=== PATIENT | male | born 1930 | race Caucasian/White ===

== ENCOUNTER 2017-09-03 09:00 | Inpatient (IN) | payer MEDICARE, OTHER ==
[2017-09-13] MEDS ORDERED: FAMOTIDINE 20MG TABLET PO ONE (06:00)
[2017-09-13] MEDS ORDERED: MECLIZINE 25 MG TABLET PO ONE (06:00)
[2017-09-13] MEDS ORDERED: METOCLOPRAMIDE 10 MG TABLET PO ONE (06:00)
[2017-09-13] MEDS ORDERED: CELECOXIB 100 MG CAPSULE PO ONE (06:00)
[2017-09-13] MEDS ORDERED: ACETAMINOPHEN 1,000 MG/100 ML BTL IV ONE (06:00)
[2017-09-13] MEDS ORDERED: VANCOMYCIN HCL 1,000 MG in DEXTROSE 5 % IN WATER 250 ML IVPB ONE ×2 (06:00)
[2017-09-13 12:49] LABS: ABO GROUP A; ANTIBODY SCREEN NEGATIVE (NEGATIVE); RH TYPE POSITIVE
[2017-09-13] MEDS ORDERED: TRANEXAMIC ACID 1,000 MG/10 ML ML IV ONE (14:00)
[2017-09-13] MEDS ORDERED: VANCOMYCIN HCL 1 GM VIAL IVPB ONE (14:00)
[2017-09-13] MEDS ORDERED: BUPIVACAINE 0.5% W/EPI MPF 30 ML VIAL IVP ONE (14:00)
[2017-09-13] MEDS ORDERED: METOCLOPRAMIDE HCL 10 MG/2 ML VIAL IVP PRN (15:09)
[2017-09-13] MEDS ORDERED: ACETAMINOPHEN 325 MG TAB PO PRN (15:09)
[2017-09-13] MEDS ORDERED: TRAMADOL HCL 50 MG TABLET PO PRN ×2 (15:09)
[2017-09-13] MEDS ORDERED: ONDANSETRON HCL IV 4 MG/2 ML VIAL IVP PRN (15:09)
[2017-09-13] MEDS ORDERED: HYDROCODONE/APAP 5/325MG TABLET PO PRN ×2 (15:09)
[2017-09-13] MEDS ORDERED: PROMETHAZINE HCL 12.5 MG in 0.9 % SODIUM CHLORIDE 100ML 50 ML IVPB PRN (15:09)
[2017-09-13] MEDS ORDERED: BISACODYL 10 MG SUPP RC PRN (15:09)
[2017-09-13] MEDS ORDERED: DIPHENHYDRAMINE HCL 25 MG CAPSULE PO PRN (15:09)
[2017-09-13] MEDS ORDERED: KETOROLAC 30 MG/ML VIAL IVP PRN ×2 (15:09)
[2017-09-13] MEDS ORDERED: HYDROMORPHONE HCL 2 MG/ML VIAL IM PRN ×2 (15:09)
[2017-09-13] MEDS ORDERED: HYDROCODONE/APAP 7.5/325MG TABLET PO PRN (15:09)
[2017-09-13] MEDS ORDERED: ZOLPIDEM TARTRATE 5 MG TABLET PO PRN (15:09)
[2017-09-13] MEDS ORDERED: MAGNESIUM HYDROXIDE 30 ML UDC PO PRN (15:09)
[2017-09-13] MEDS ORDERED: ACETAMINOPHEN W/ CODEINE 300MG/30MG TABLET PO PRN ×2 (15:09)
[2017-09-13] MEDS ORDERED: AL HYDROX/MAG HYDROX 30ML UD PO PRN (15:09)
[2017-09-13] MEDS ORDERED: ACETAMINOPHEN W/ CODEINE 300MG/60MG TABLET PO PRN ×2 (15:09)
[2017-09-13] MEDS ORDERED: NALOXONE 0.4 MG/1 ML VIAL IVP PRN (15:09)
[2017-09-13] MEDS ORDERED: MECLIZINE 25 MG TABLET PO PRN (15:10)
[2017-09-13] MEDS ORDERED: DEXTROSE 5 % AND 0.9 % NACL 1,000 ML IV PRN (18:00)
[2017-09-13] MEDS: DOCUSATE SODIUM 100 MG CAPSULE PO SCH (21:30)
[2017-09-13] MEDS: FERROUS SULFATE 325 MG TAB PO SCH (21:30)
[2017-09-13] MEDS: METOPROLOL SUCC 50 MG TABLET PO SCH (21:32)
[2017-09-13] MEDS: HYDRALAZINE HCL 25 MG TABLET PO SCH (21:36)
[2017-09-13] MEDS ORDERED: SIMVASTATIN 20 MG TABLET PO SCH (22:00)
[2017-09-13] MEDS ORDERED: PATIENT OWN MED: ALFUZOSIN 10 MG PO SCH (22:00)
[2017-09-13] MEDS ORDERED: CLONAZEPAM 1MG TABLET PO SCH (22:00)
[2017-09-14] MEDS: VANCOMYCIN HCL 1,000 MG in 0.9 % SODIUM CHLORIDE 250ML 250 ML IVPB SCH ×2 (00:52→12:17)
[2017-09-14] MEDS: HYDROCODONE/APAP 7.5/325MG TABLET PO PRN ×2 (04:02→08:03)
[2017-09-14 06:58] LABS: HEMATOCRIT 36.8 % (42.0-52.0); HEMOGLOBIN 12.4 gm/dl (14.0-18.0)
[2017-09-14] MEDS ORDERED: LEVOTHYROXINE SODIUM 75 MCG TABLET PO SCH (07:00)
[2017-09-14] MEDS ORDERED: FAMOTIDINE 20MG TABLET PO SCH (07:00)
--- NOTE | 2017-09-14 07:11 | RADIOLOGY REPORT ---
EXAM: PORTABLE LEFT HIP HISTORY: POSTOP. TECHNIQUE: A single AP view of the left hip was performed. FINDINGS: The patient is status post left hip arthroplasty. No complicating process. IMPRESSION: STATUS POST LEFT HIP ARTHROPLASTY. NO COMPLICATING PROCESS. JOB NUMBER: [id number] MTDD
[2017-09-14] MEDS: HYDRALAZINE HCL 25 MG TABLET PO SCH (09:04)
[2017-09-14] MEDS: METOPROLOL SUCC 50 MG TABLET PO SCH (09:05)
[2017-09-14] MEDS: FERROUS SULFATE 325 MG TAB PO SCH (09:05)
[2017-09-14] MEDS: DOCUSATE SODIUM 100 MG CAPSULE PO SCH (09:05)
[2017-09-14] MEDS ORDERED: RIVAROXABAN 10 MG TABLET PO SCH (10:00)
[2017-09-14] MEDS ORDERED: HYDROCHLOROTHIAZIDE 25 MG TABLET PO SCH (10:00)
[2017-09-14] MEDS ORDERED: PATIENT OWN MED: FINASTERIDE 5 MG PO SCH (10:00)
[2017-09-14] MEDS ORDERED: CELECOXIB 100 MG CAPSULE PO SCH (10:00)
--- NOTE | 2017-09-14 10:59 | Rehab Evaluation ---
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) Hx of Migraines Yes: yrs ago Comment: high cholesterol, severe aortic regurg asymptomatic PMH - Neuro Hx Neurological Disorders Yes Hx Dizziness Yes: vertigo positional 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) Hx Weakness Yes: left arm and left knee/hip PMH - GI Hx Gastrointestinal Disorders Yes Hx Gastroesophageal Reflux Yes PMH - Hx Genitourinary Disorders Yes Hx Prostate Problems Yes: BPH Hx Renal Disease Yes: stage 3 Comment: pt alway needs to have catheter after ansesthesia PMH - Endocrine Hx Endocrine Disorders Yes Hx Thyroid Disease Yes PMH - Musculoskeletal Hx Musculoskeletal Disorders Yes Hx Arthritis Yes PMH - Psych Hx Psychiatric Problems Yes Hx Anxiety Yes Hx Depression Yes PMH - Hematology/Oncology Hx Hematology/Oncology No Disorders Premorbid Status: Detail (Prior to surgery the patient was independent with all mobility.) Social History: Detail (The patient lives with spouse in a one story house with one step at the enterance with one handrailing. The patient's bathroom is equipped with with tub/shower combination,grab bars , hand held shower, tub bench with transfer seat and an elevated toilet seat. The patient has standard walker and " several canes" at home.) Precautions: [place], Fall, Other (THR precautions.) - Time With Patient Total Time Spent With Patient (Min): 20 Treatment Procedures: Detail (Initial Evaluation, gait training) Subjective Information - Subjective Information Per Patient (The patient had complaints of L hip pain but did not rate his pain using the 0-10 pain scale.) Objective Data - Mental Status Patient Orientation: Oriented x3 - Visual Perception Appears within normal limits for therapeutic activities - ROM Not within normal limits (The patient's L hip is within THR precautions. All other LE AROM is WNL.) - Strength/Tone Not within normal limits (The patient's L LE strength was not tested due to s/p surgery however the patient presents with hip flexor and abductor weakness ie: difficulty with heel slides and supine hip abduction. The patient's weakness is influenced by L hip pain. The patient's R LE strength was 4+ to 5/5.) - Bed Mobility Independent (The patient was independent with sit to supine and scooting up in bed with verbal cues and use of handrails. PT did not assess supine to sit secondary to patient was fatigued and painful. Refer to OT not for supine to sit transfer.) - Transfers Independent (The patient was independent with sit to and from stand transfer.) - Balance Balance Sitting: Good Balance Standing: Good - Sensation Intact - Gait Detail (The patient ambulated with standard walker, WBAT on the L LE independently a distance of 120 feet x 1. The patient ambulated on 3 steps using proper technique, one railing and folded walker with supervision for safety only.) Therapy Assessment - Therapy Assessment Detail (The patient was independent with supine to sit , scooting up in bed, transfers and ambulation on levels and stairs. The patient correctly followed THR precautions throughout mobility. The patient has met all inpatient PT goals. ) Patient Education - Patient Education Teaching Topic: Exercise/Activity (The patient was independent with THR HEP including: heel slides, hip abduction, gluteal sets, quad sets, hamstring sets, ankle pumps.), Precautions (The patient recalled all THR precautions without verbal cues and safely followed them.) Response: Return Demonstration Teaching Method: Demonstration, Handout Teaching Recipient: Patient Barriers To Learning: Age Related Problem List - Problem List Physical Therapy Problem List: Detail (The patient has decreased L LE strength and hip pain as to be expected following surgery.) Goals - Goals Physical Therapy Goals: All inpatient Pt goals have been met. Prognosis - Prognosis Good Plan - Plan Physical Therapy Plan: The patient is discharged from inpatient PT and is to continue with Home PT.
--- NOTE | 2017-09-14 11:14 | Rehab Evaluation ---
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) Hx of Migraines Yes: yrs ago Comment: high cholesterol, severe aortic regurg asymptomatic PMH - Neuro Hx Neurological Disorders Yes Hx Dizziness Yes: vertigo positional 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) Hx Weakness Yes: left arm and left knee/hip PMH - GI Hx Gastrointestinal Disorders Yes Hx Gastroesophageal Reflux Yes PMH - Hx Genitourinary Disorders Yes Hx Prostate Problems Yes: BPH Hx Renal Disease Yes: stage 3 Comment: pt alway needs to have catheter after ansesthesia PMH - Endocrine Hx Endocrine Disorders Yes Hx Thyroid Disease Yes PMH - Musculoskeletal Hx Musculoskeletal Disorders Yes Hx Arthritis Yes PMH - Psych Hx Psychiatric Problems Yes Hx Anxiety Yes Hx Depression Yes PMH - Hematology/Oncology Hx Hematology/Oncology No Disorders Premorbid Status: Detail (Prior to surgery the patient was independent with all mobility.) Social History: Detail (The patient lives with spouse in a one story house with one step at the entrance with one handrailing. The patient's bathroom is equipped with with tub/shower combination, grab bars, hand held shower, tub bench with transfer seat and an elevated toilet seat. The patient has standard walker and " several canes" at home. He will be borrowing a hat band attacher from his sister. His is responsible for all home mgmt, meal prep and laundry. He is responsible for yard work.) Precautions: [place], Fall, Other (THR precautions.) - Time With Patient Total Time Spent With Patient (Min): 30 Treatment Procedures: Detail (OT eval low complexity) Subjective Information - Subjective Information Per Patient Objective Data - Pain Pain Present: No (0/10 at rest) - Mental Status Patient Orientation: Oriented x3 - Visual Perception Appears within normal limits for therapeutic activities - ROM Within normal limits (Suresh UE AROM WNL) - Strength/Tone Within normal limits (Suresh UE strength WNL) - Coordination Appears within normal limits for therapeutic activities - Bed Mobility Needs Assist (Pt required min assist x 1 for supine to sit due to hip pain. Reviewed transfer technique and pt reports he is planning to sleep in recliner for a few days as his is unable to help him out of bed. Encouraged pt to review bed mobility with home PT after discharge.) - Transfers Independent (Ind with sit to stand from EOB.) - Balance Balance Sitting: Good Balance Standing: Good - Sensation Intact - Gait Detail (Pt ambulating in room with standard walker Indly.) - ADL's/IADL's Detail (Pt educated and demonstrated learning of LE dressing techniques using hat band attacher and sock aid. Pt able to don tennis shoes with modification to laces. Pt reports he is borrowing a hat band attacher and his will assist with socks. Reviewed shower safety, pt verbalizes learning.) Therapy Assessment - Therapy Assessment Detail (Ind with LE dressing while maintaining hip precautions.) Problem List - Problem List Occupational Therapy Problem List: Detail (No current OT problems identified.) Goals - Goals Occupational Therapy Goals: No current OT goals identified. Prognosis - Prognosis Good Plan - Plan Occupational Therapy Plan: No further IP OT recommended. Thank you for this referral.
[2017-09-14] MEDS ORDERED: PROPOFOL 10 MG/ML VIAL IV ONE (13:49)
[2017-09-14] MEDS ORDERED: EPHEDRINE SULFATE 50 MG/ML ML IV ONE (13:49)
[2017-09-14] MEDS ORDERED: ONDANSETRON HCL IV 4 MG/2 ML VIAL IVP ONE (13:49)
[2017-09-14] MEDS ORDERED: MIDAZOLAM HCL 2MG/2ML VIAL IV ONE (13:49)
[2017-09-14] MEDS ORDERED: LIDOCAINE 1% MDV (10MG/ML) 20ML VIAL SQ ONE (13:49)
[2017-09-15] MEDS ORDERED: NEXIUM 40 MG PO SCH (07:00)
--- NOTE | 2017-09-15 22:04 | Operative Note ---
DATE OF SURGERY: 09/13/2017 PREOPERATIVE DIAGNOSIS: End-stage left hip arthrosis. POSTOPERATIVE DIAGNOSIS: End-stage left hip arthrosis. OPERATION: Left total hip arthroplasty. SURGEON: Davi Montez M.D. ANESTHESIA: Spinal. Eula Key CRNA and Kevyn Corea CRNA. COMPLICATIONS: None. BLOOD LOSS: 200 mL. OPERATIVE FINDINGS: [id number] hip arthrosis. COMPONENTS PLACED: 2 grams Vancomycin, [employer] cemented Synergy stem, size 14, high-offset with a 54 mm three-hole reflection acetabular shell with one acetabular screw, two screw caps, a centrally threaded screw cap, a 35 degree high-crosslinked polyethylene liner, and a distal cement restrictor, 12 mm cement centralizer, and a 32 +0 mm Corn Chrome femoral head component. INDICATIONS FOR OPERATION: This is an 87-year-old male, who is active/healthy, who has had left hip arthrosis and progressively worse symptoms for several years. He failed nonoperative treatment and is scheduled for a hip replacement. I explained the risks and benefits to him in detail for his diagnosis and procedures including but not limited to; infection, nerve injury, vessel injury , persistent pain, persistent numbness and tingling in his hip, periprosthetic fracture, need for resection arthroplasty should the components become infected or loosened, nerve injury, vessel injury, blood clot, need for further procedures, need for anticoagulation to prevent blood clots and risks associated with these medications and all of his questions were answered. Rehab and course were outlined and he agreed to proceed. PROCEDURE: The patient was brought to the O.R. and placed in the right lateral decubitus position and his left hip and lower extremity were prepped and draped in the usual sterile fashion, The left hip was prepped again with ChloraPrep after it was draped. Intraoperative time-out was performed. Next, a standard posterior approach was performed over the hip and infiltrated with 0.5% Marcaine with Epinephrine, 2 grams of Tranexamic Acid and Exparel mixture. The skin and subcutaneous tissues were dissected down to the gluteal fascia. The gluteal fascia was split longitudinally and the subgluteal plane was bluntly dissected. I identified the sciatic nerve and carefully protected it at all times. I took off the short external rotators. Next, I incised the capsule proximally and distally and released the capsule around the femoral head and neck and resected the femoral head about 1.5 cm above the lesser trochanter. Next, I removed the short external rotator tendon stumps. I inserted the boxed osteotome and then inserted the reamer and reamed by hand working in 1 mm increments to a size 14. We stopped there. We broached a 12 and calcar planed, then a 13 and calcar planed, and then a 4 and calcar planed and had good fit and stopped there. The 14 fit nicely. Next, attention was turned to the acetabulum. We placed an inferior acetabular retractor and released the capsule anteriorly. We placed a retractor there to retract the proximal femur anteriorly. We resected the labrum and some capsule around the periphery and had good exposure of the acetabulum. Next, we started reaming in 1 mm increments in 45 degrees of inclination and 20 degrees of anteversion until we reamed up to a size 53. We trialed a 54 shell and it fit nicely and that is the size we plan on using. Next, we impacted down the real 54 shell component, again using the helicopter guide in 45 degrees of inclination and 20 degrees of anteversion and tapped it down until it was flush to the medial wall. We drilled the posterior central and superior quadrant screw hole and inserted that screw and had a good purchase. Next, we placed the trial liner and did a trial reduction. The best combination for range of motion, stability, and leg lengths was with a high-offset 32 +0 mm head. This allowed for a good abductor tensioning, stability with flexion in internal rotation and extension in external rotation, and symmetric leg lengths and this was the size we used. We removed all trial components now. Copiously irrigated the acetabulum and inserted the threaded screw cap and the two screw caps and impacted down the real acetabular liner with the phelan in the posterior superior quadrant and verified this was interlocking around the periphery. Next, we irrigated the femoral canal copiously. We placed the cement restrictor distally and inserted the suction catheter. We injected cement in a 3rd generation cement technique. We removed the suction catheter and then impacted and cemented manually by hand and then inserted the real femoral stem, again in 15 degrees of anteversion until the collar was flush with the medial calcar and held it there until the cement hardened and removed excess cement. We cleaned and dried the trunnion. We impacted down the real femoral head. We re -reduced the hip. Final range of motion revealed the same. We irrigated the hip copiously, injected the remainder of our mixture in the deep capsule protecting the sciatic nerve, the deep capsule, short external rotators, abductors, and periosteum working deep to superficial. We closed the gluteal fascia with running #2 Quill suture. Irrigated and closed the skin with 2-0 Vicryl superiorly and placed a provisional dressing with the Acticoat on and this will be changed to a ANGELA dressing tomorrow. Abduction pillow. Postoperative x-ray showed good fit and orientation of the components. The patient tolerated the procedure well. No intraoperative complications. All sponge, needle, and blade counts were correct. Recovery stable, neurovascularly intact. He will be discharged to the Floor. He will be discharged home tomorrow with Home Therapy Nurse. He will follow-up in two weeks. cc: Dr. Kaplan JOB NUMBER: [id number] MTDD
== END 2017-09-14 13:50 | disposition home health service (06) | DRG 470 ==
LOC: MEDSURG 09-13 11:43 → UNDOADMIN 09-13 11:43
PROVIDERS: ADMIT Orthopaedic Surgery; ATTEND Orthopaedic Surgery
PROC: 0SRB069 Replacement of Left Hip Joint with Oxidized Zirconium on Polyethylene Synthetic Substitute, Cemented, Open Approach (ICD-10-PCS; principal; 2017-09-13 14:00)
DX: M16.12 Unilateral primary osteoarthritis, left hip (principal); I10 Essential (primary) hypertension; E78.00 Pure hypercholesterolemia, unspecified; N40.0 Benign prostatic hyperplasia without lower urinary tract symptoms; K21.9 Gastro-esophageal reflux disease without esophagitis
CPT/HCPCS: 85014; 85018; 86850; 86900; 86901; C1776; J2405; J7050; J7060

== ENCOUNTER 2018-09-26 07:58 | Day surgery (SDC) | payer MEDICARE, OTHER ==
[~2018-09-26 07:58] MED LIST: ACETAMINOPHEN 500 MG TABLET PO ONE; CEFAZOLIN 2 Gram 2 GM/50 ML BAG IVPB ONE; CELECOXIB 100 MG CAPSULE PO ONE; FAMOTIDINE 20MG TABLET PO ONE; METOCLOPRAMIDE 10 MG TABLET PO ONE; SCOPOLAMINE 1 PATCH TDSY TD ONE; VANCOMYCIN 1GM/200ML PREMIX 1 GM/200 ML PIGGYBACK IVPB ONE
[2018-09-26] MEDS ORDERED: ROPIVACAINE HCL (NAROPIN) /PF 5MG/ML 20ML VIAL IV ONE (07:59)
[2018-09-26] MEDS ORDERED: LIDOCAINE 2% MDV (20MG/ML) 20ML VIAL IV ONE (07:59)
[2018-09-26] MEDS ORDERED: TRANEXAMIC ACID 1,000 MG/10 ML ML IV ONE (07:59)
[2018-09-26] MEDS ORDERED: VANCOMYCIN HCL 1 GM VIAL IVPB ONE (07:59)
[2018-09-26] MEDS ORDERED: PROPOFOL 10 MG/ML VIAL IV ONE (07:59)
[2018-09-26] MEDS ORDERED: DEXAMETHASONE 4 MG/ML 1ML VIAL IVP ONE (07:59)
[2018-09-26] MEDS ORDERED: MIDAZOLAM HCL 2MG/2ML VIAL IV ONE (07:59)
[2018-09-26] MEDS ORDERED: ZOLPIDEM TARTRATE 5 MG TABLET PO PRN (08:23)
[2018-09-26] MEDS ORDERED: PROMETHAZINE HCL 12.5 MG in 0.9 % SODIUM CHLORIDE 100ML 50 ML IVPB PRN (08:23)
[2018-09-26] MEDS ORDERED: METOCLOPRAMIDE HCL 10 MG/2 ML VIAL IVP PRN (08:23)
[2018-09-26] MEDS ORDERED: KETOROLAC 30 MG/ML VIAL IVP PRN ×2 (08:23)
[2018-09-26] MEDS ORDERED: NALOXONE 0.4 MG/1 ML VIAL IVP PRN (08:23)
[2018-09-26] MEDS ORDERED: TRAMADOL HCL 50 MG TABLET PO PRN ×2 (08:23)
[2018-09-26] MEDS ORDERED: AL HYDROX/MAG HYDROX 30ML UD PO PRN (08:23)
[2018-09-26] MEDS ORDERED: HYDROCODONE/APAP 7.5/325MG TABLET PO PRN (08:23)
[2018-09-26] MEDS ORDERED: MAGNESIUM HYDROXIDE 30 ML UDC PO PRN (08:23)
[2018-09-26] MEDS ORDERED: ACETAMINOPHEN W/ CODEINE 300MG/60MG TABLET PO PRN ×2 (08:23)
[2018-09-26] MEDS ORDERED: HYDROCODONE/APAP 5/325MG TABLET PO PRN ×2 (08:23)
[2018-09-26] MEDS ORDERED: BISACODYL 10 MG SUPP RC PRN (08:23)
[2018-09-26] MEDS ORDERED: HYDROMORPHONE HCL 2 MG/ML VIAL IM PRN ×2 (08:23)
[2018-09-26] MEDS ORDERED: ACETAMINOPHEN W/ CODEINE 300MG/30MG TABLET PO PRN ×2 (08:23)
[2018-09-26] MEDS ORDERED: DIPHENHYDRAMINE HCL 25 MG CAPSULE PO PRN (08:23)
[2018-09-26] MEDS ORDERED: ACETAMINOPHEN 325 MG TAB PO PRN (08:23)
[2018-09-26 08:53] LABS: ABO GROUP A; ANTIBODY SCREEN NEGATIVE (NEGATIVE); RH TYPE POSITIVE
[2018-09-26] MEDS ORDERED: DOCUSATE SODIUM 100 MG CAPSULE PO SCH (10:00)
[2018-09-26] MEDS ORDERED: FERROUS SULFATE 325 MG TAB PO SCH (10:00)
[2018-09-26] MEDS ORDERED: 0.9 % SODIUM CHLORIDE 1000ML 1,000 ML IV ONE ×2 (10:23→10:56)
[2018-09-26] MEDS ORDERED: BUPIVACAINE 0.5% W/EPI MPF 30 ML VIAL SQ ONE (10:51)
[2018-09-26] MEDS ORDERED: BUPIVACAINE LIPOSOME 266MG/20ML VIAL SQ ONE ×2 (10:51)
[2018-09-26] MEDS: ONDANSETRON HCL IV 4 MG/2 ML VIAL IVP PRN (14:22)
[2018-09-26] MEDS ORDERED: PATIENT OWN MED: CLONAZEPAM 0.5 MG PO SCH (16:00)
[2018-09-26] MEDS ORDERED: HYDRALAZINE HCL 10 MG TABLET PO SCH (16:00)
--- NOTE | 2018-09-26 16:10 | Rehab Evaluation ---
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) Hx of Migraines Yes: yrs ago Comment: POSSIBLE AORTIC VALVE REPLACEMENT IN HIS FUTURE PMH - Neuro Hx Neurological Disorders Yes Hx Dizziness Yes: vertigo positional 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) Hx Weakness Yes: left arm and left knee/hip PMH - GI Hx Gastrointestinal Disorders Yes Hx Gastroesophageal Reflux Yes PMH - Hx Genitourinary Disorders Yes Hx Prostate Problems Yes: BPH Hx Renal Disease Yes: stage 3 Comment: pt alway needs to have catheter after ansesthesia PMH - Endocrine Hx Endocrine Disorders Yes Hx Thyroid Disease Yes PMH - Musculoskeletal Hx Musculoskeletal Disorders Yes Hx Arthritis Yes PMH - Psych Hx Psychiatric Problems Yes Hx Anxiety Yes Hx Depression Yes PMH - Hematology/Oncology Hx Hematology/Oncology No Disorders Premorbid Status: Detail (The patient was independent with all mobility prior to surgery.) Social History: Detail (The patient lives with spouse in a one story house with one step at the enterance and one handrail. The bathroom is equipped with: a tub/shower combination, hand held shower, elevated toilet. The bathroom has grab bars by the shower but not the toilet. The patient has a standard walker. The patient has a motor lodge clerk.) Precautions: [place], Fall, Other (WBAT on the L LE) - Time With Patient Total Time Spent With Patient (Min): 30 Treatment Procedures: Detail (Initial Evaluation Low Complexity, gait training) Subjective Information - Subjective Information Per Patient (The patient has no complaints of pain.) Objective Data - Mental Status Patient Orientation: Oriented x3 - Visual Perception Appears within normal limits for therapeutic activities - ROM Not within normal limits (The patient's L knee AROM is limited as to be expected following surgery. All other AROM is WNL.) - Strength/Tone Not within normal limits (The patient's L LE strength was not tested s/p surgery however is functional ie: patient is able to lift L LE out of bed. R LE strength is functional.) - Bed Mobility Independent (The patient is independent with supine to sit transfer.) - Transfers Independent (The patient was independent with sit to and from stand transfer and toilet transfer.) - Balance Balance Sitting: Good Balance Standing: Good - Sensation Intact - Gait Detail (The patient ambulated with standard walker a distance of 74 feet x 1 WBAT on the L LE with assist of 1 to handle the IV .) Therapy Assessment - Therapy Assessment Detail (The patient was independent with bed mobility, transfers and ambulation on level surfaces. After ambulating, the patient was left in chair at bedside with call light within reach. Nursing staff was notified. Feel the patient will progress well with mobility.) Problem List - Problem List Physical Therapy Problem List: Detail ( Decreased L knee AROM and LE strength.) Goals - Goals Physical Therapy Goals: 1) The patient will be independent with TKA HEP. 2) The patient will ambulate on stairs using proper technique with supervision for safety only. Prognosis - Prognosis Good Plan - Plan Physical Therapy Plan: PT 1-2 sessions for gait training and instruction in TKA HEP.
[2018-09-26] MEDS: DEXTROSE 5 % AND 0.9 % NACL 1,000 ML IV PRN (16:25)
[2018-09-26] MEDS: METOPROLOL TARTRATE 50 MG PO SCH (21:16)
[2018-09-26] MEDS: DOCUSATE SODIUM 100 MG CAPSULE PO SCH (21:16)
[2018-09-26] MEDS: FERROUS SULFATE 325 MG TAB PO SCH (21:16)
[2018-09-26] MEDS: HYDRALAZINE 10 MG PO SCH (21:16)
[2018-09-26] MEDS: VANCOMYCIN 1GM/200ML PREMIX 1 GM/200 ML PIGGYBACK IVPB SCH (21:17)
[2018-09-26] MEDS ORDERED: PATIENT OWN MED: AMLODIPINE 5 MG PO SCH (22:00)
[2018-09-26] MEDS ORDERED: PATIENT OWN MED: SIMVASTATIN 20 MG PO SCH (22:00)
[2018-09-27] MEDS: DEXTROSE 5 % AND 0.9 % NACL 1,000 ML IV PRN (01:30)
[2018-09-27] MEDS: HYDROCODONE/APAP 7.5/325MG TABLET PO PRN ×3 (05:13→15:53)
[2018-09-27 06:28] LABS: HEMATOCRIT 36.7 % (42.0-52.0); HEMOGLOBIN 12.2 gm/dl (14.0-18.0)
[2018-09-27] MEDS ORDERED: LEVOTHYROXINE SODIUM 100 MCG TABLET PO SCH (07:00)
[2018-09-27] MEDS: VANCOMYCIN 1GM/200ML PREMIX 1 GM/200 ML PIGGYBACK IVPB SCH (08:51)
[2018-09-27] MEDS: FERROUS SULFATE 325 MG TAB PO SCH (09:07)
[2018-09-27] MEDS: DOCUSATE SODIUM 100 MG CAPSULE PO SCH (09:07)
[2018-09-27] MEDS ORDERED: PATIENT OWN MED: FAMOTIDINE 20 MG PO SCH (10:00)
[2018-09-27] MEDS ORDERED: PATIENT OWN MED: FINASTERIDE 5 MG PO SCH (10:00)
[2018-09-27] MEDS ORDERED: RIVAROXABAN 10 MG TABLET PO SCH (10:00)
[2018-09-27] MEDS ORDERED: CELECOXIB 100 MG CAPSULE PO SCH (10:00)
[2018-09-27] MEDS ORDERED: PATIENT OWN MED: ALFUZOSIN 10 MG PO SCH (10:00)
--- NOTE | 2018-09-27 10:38 | Physical Therapy Tx Note ---
Physical Therapy Tx Note - Treatment Note Tolerated: Good Total Time Spent With Patient: 20 Physical Therapy Tx Note: Detail (The patient was up in chair when PT arrived and feeling better. Patient denied pain. The patient ambulated with front wheeled walker WBAT on the L LE a distance of 100 feet x 1 independently. The patient ambulated on stairs using one railing and folded walker with supervision for safety using proper technique. The patient completed the following TKA exercises including: seated and supine heel slides, ankle pumps, quad sets, gluteal sets, hamstring sets and SLR. The patient has met all inpatient goals and is discharged from inpatient PT.) Physical Therapy Problem List: Detail ( Decreased L knee AROM and LE strength.) Physical Therapy Goals: 1) The patient will be independent with TKA HEP.(Goal Met). 2) The patient will ambulate on stairs using proper technique with supervision for safety only.(Goal Met) Physical Therapy Plan: The patient has met all inpatient PT goals and is discharged from inpatient PT. The patient is to receive Home PT.
--- NOTE | 2018-09-27 11:12 | Rehab Evaluation ---
Patient Information - Patient Information Diagnosis: L knee OA Ordered Treatment: OT Evaluate and Treat Status: Initial Evaluation Surgery: Yes (L knee TKA) Date of Surgery: 09/26/18 Past Medical/Surgical Hx: PAST MEDICAL/SURGICAL HISTORY Past Surgical History [facility] 09-13-17 billie c scope right RTC inguinal hernia left knee scope lami prostate bx PMH - Respiratory Hx Respiratory Disorders Yes Hx Sleep Apnea Yes Hx of CPAP Yes PMH - Cardiovascular Hx Cardiovascular Disorders Yes Hx Abnormal EKG Yes Hx Hypertension Yes Hx Heart Murmur Yes Exercise Tolerance Good 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) Hx of Migraines Yes: yrs ago Comment: POSSIBLE AORTIC VALVE REPLACEMENT IN HIS FUTURE PMH - Neuro Hx Neurological Disorders Yes Hx Dizziness Yes: vertigo positional 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) Hx Weakness Yes: left arm and left knee/hip PMH - GI Hx Gastrointestinal Disorders Yes Hx Gastroesophageal Reflux Yes PMH - Hx Genitourinary Disorders Yes Hx Prostate Problems Yes: BPH Hx Renal Disease Yes: stage 3 Comment: pt alautumn needs to have catheter after ansesthesia PMH - Endocrine Hx Endocrine Disorders Yes Hx Thyroid Disease Yes PMH - Musculoskeletal Hx Musculoskeletal Disorders Yes Hx Arthritis Yes PMH - Psych Hx Psychiatric Problems Yes Hx Anxiety Yes Hx Depression Yes PMH - Hematology/Oncology Hx Hematology/Oncology No Disorders Premorbid Status: Detail (The patient was independent with all ADLs and mobility and driving prior to surgery.) Social History: Detail (The patient lives with spouse in a one story house with one step at the enterance and a right-sided handrail. The bathroom is equipped with: a tub/shower combination, grab bars in the shower, hand held shower, and elevated toilet. The patient has a standard walker and a powerhouse attendant.) Precautions: [place], Fall, Other (WBAT on the L LE) - Time With Patient Total Time Spent With Patient (Min): 20 (1 eval) Treatment Procedures: Detail (OT eval: low complexity) Subjective Information - Subjective Information Per Patient (Ok to see per ESAU Lowery. Pt ageeable to OT eval.) Objective Data - Pain Pain Present: No Pain Scale Used: Numeric (1 - 10) (0/10) - Mental Status Patient Orientation: Oriented x3 - Visual Perception Appears within normal limits for therapeutic activities - ROM Within normal limits - Strength/Tone Within normal limits - Coordination Appears within normal limits for therapeutic activities - Transfers Independent (Sit to/from stand to FWW from chair and raised toilet seat independently.) - Balance Balance Sitting: Good Balance Standing: Good - Sensation Intact - Gait Detail (Functional mobility with FWW within Pt's bedroom with supervision - verbal instruction for smaller steps especially during turns, progressing to MOD I with walker) - ADL's/IADL's Detail (OT educated Pt on adaptive technique for LB dressing, Pt demos MOD I with modified techniques to don underwear, pants, socks, and shoes. OT educated Pt on modified techniques for kitchen and bathroom safety at home, Pt verbalizes understanding and demos ability to complete tub TF.) Therapy Assessment - Therapy Assessment Detail (Pt demos safety and MOD I with LB dressing and verbalizes safe technique for home tasks with good safety awareness. No safety concerns re: home DC.) Patient Education - Patient Education Response: Return Demonstration, Verbalize Understanding Teaching Method: Discussion, Demonstration Teaching Recipient: Patient Barriers To Learning: None Problem List - Problem List Physical Therapy Problem List: Detail ( Decreased L knee AROM and LE strength.) Occupational Therapy Problem List: Detail (No futher IP OT needs identified.) Goals - Goals Physical Therapy Goals: 1) The patient will be independent with TKA HEP.(Goal Met). 2) The patient will ambulate on stairs using proper technique with supervision for safety only.(Goal Met) Occupational Therapy Goals: No futher IP OT needs/goals identified. Prognosis - Prognosis Good Plan - Plan Physical Therapy Plan: The patient has met all inpatient PT goals and is discharged from inpatient PT. The patient is to receive Home PT. Occupational Therapy Plan: No further IP OT needs identified. DC skilled OT services. Thank you for this referral.
[2018-09-27] MEDS: ONDANSETRON HCL IV 4 MG/2 ML VIAL IVP PRN (11:38)
[2018-09-27] MEDS: METOPROLOL TARTRATE 50 MG PO SCH (13:13)
[2018-09-27] MEDS: HYDRALAZINE 10 MG PO SCH ×2 (13:13→15:54)
--- NOTE | 2018-10-06 14:20 | Operative Note ---
DATE OF SURGERY: 09/26/2018 PREOPERATIVE DIAGNOSIS: End-stage left knee arthrosis. POSTOPERATIVE DIAGNOSIS: End-stage left knee arthrosis. OPERATION: Left total knee arthroplasty. SURGEON: Davi Montez MD ANESTHESIA: Spinal. ANESTHESIA PROVIDER: RAFITA Forde COMPLICATIONS: None. ESTIMATED BLOOD LOSS: Minimal. OPERATIVE FINDINGS: [id number] medial compartment arthrosis. COMPONENTS PLACED: A [employer] II total arthroplasty system, size 8 Oxinium femoral component, a size 8 tibial baseplate, a 9 mm thick tibial poly insert, and 38 mm cemented patellar component. INDICATIONS: This is an 88-year-old male who has had persistent dysfunction in both knees for several years. Failed nonoperative treatment and scheduled for a knee replacement. I explained all risks and benefits in detail for the diagnosis and procedure including but not limited to infection, nerve injury, vessel injury, persistent pain, stiffness, numbness, tingling in the knee, periprosthetic fracture, need for resection arthroplasty if components become infected or loosen, nerve injury, vessel injury, blood clot, and need for further procedures. All his questions were answered. Rehab course was outlined. He agreed to proceed. PROCEDURE: The patient brought to the OR, placed in the supine position, prepped for surgery. Spinal anesthesia induced. The left lower extremity and knee were prepped and draped in sterile fashion. Left knee prepped again with Chloraprep after it was draped. Intraoperative timeout was performed. Next, the leg was exsanguinated. We pre-prepped the knee and we did not use a tourniquet during the entire case. We used Aquamantys for our cauterization and the knee was flexed. Next, anterior approach was performed to the knee after it was infiltrated with 0.5% Marcaine with epinephrine. Skin and subcutaneous dissected down to the capsule. Carefully cauterized each layer with our Aquamantys medially and laterally, capsule, subcutaneous tissue. Incised the capsule medially around the medial border of the patella to the tibial tubercle. Incised the vastus medialis in line with its fibers in a mid vastus approach. I partially resected the retropatellar fat pad, elevated the capsule subperiosteally and medially. Then flexed the knee removing the anterior horn of the meniscus, ACL. He had [id number] medial component arthrosis. Drilled intracondylar drill holes, inserted the intramedullary guide av, 6-degree cutting block, aligned the distal femoral condyles, and pinned it in +2 mm position and cut the distal femoral condyle. Next, we placed a sizing jig on the distal femoral condyle in 3 degrees of external rotation and dialed in the anterior cut so it would come out size to be size 8. Then we dialed in the anterior cuts so it would come out flush without notching. Cut the anterior cut and it was a good flush cut. Next, we pinned the cutting jig, cut the remainder of chamfer cuts in the usual fashion. Placed a size 8 trial component, centered it, pinned it, removed osteophytes off the edges of the components. Then inserted the resection collet, reamed out and box osteotomed out the cruciate bone block. Next, attention was turned to the tibia. Placed the external alignment jig, seated the spikes in the tubercular groove 2 fingerbreadths distal to the anterior tibial cortex in reference for a 7 mm cut off the higher lateral plateau. We pinned the cutting jig provisionally and placed 2 anterior-posterior pins. Next, we rechecked alignment of the cutting jig using a drop av centered on the tibial anatomic axis and then cross-pinned the cutting jig completing its fixation, and cut the tibia. Next, we removed osteophytes off the posterior femoral condyles and checked the flexion/extension gaps. Had symmetric flexion/extension gaps with the 9 mm thick poly insert, allow for 2-3 mm of varus/valgus laxity in flexion/extension. Overall alignment and cuts in extension was anatomic valgus orientation with alignment av centered on the hip joint and ankle joint. Next, took in flexion and sized the tibial baseplate size 8, replaced all trial components, again set the rotation tibial baseplate using the alignment in extension, marked off the laser isabel on the tibial cortex. Attention was turned to the patella and measured the patella to be 26 mm. Set the cutting jig at 17 mm to allow for a 9 mm thick insert. Cut the patella. Chamfered off lateral patellar facet, medialized as much as possible, sized to be 38, drilled 3 peg holes, placed the trial patella component and did a trial range of motion. Mixed cement. The patella tracked nicely handsfree full extension 0, flexion to 140 degrees, again symmetric flexion/extension gaps were found. Next, we changed gloves, brought in a clean sheet. Copiously irrigated bony surfaces, pulse lavage with antibiotic solution. We set the tibial baseplate at the previously placed electrocautery leary, pinned it in place and drilled out denies keel punched the keel hole. We used Aquamantys on the posterior capsule. Injected the posterior capsule with our 0.5% Marcaine with epinephrine, tranexamic acid, and Exparel mixture. We placed a bone plug in the femoral canal hole and the drill in the tibial hole and then prefilled both surfaces, impacted down the tibial component first, then the femoral component, and clamped down the patella complication and removed excess cement. Once the cement hardened, took the knee in flexion, distracted the knee bone, hook, and sponge. Again removed any excess cement, irrigated, cauterized as needed, and then impacted the real tibia poly insert and verified it was interlocked medially and laterally. We found our range of motion to be the same. Cauterized again as much as possible with Aquamantys and then closed the knee in flexion with a running #2 quill suture, and then skin with 2-0 Vicryl, and provisional dressing with Acticoat and we changed to ANGELA dressing prior to discharge likely tomorrow. HOPE
== END 2018-09-27 16:30 | disposition home health service (06) ==
LOC: SUR 07:58 → MEDSURG 12:49 → SUR 09-27 16:30
PROVIDERS: ATTEND Orthopaedic Surgery
DX: M17.12 Unilateral primary osteoarthritis, left knee (principal); I10 Essential (primary) hypertension; E78.00 Pure hypercholesterolemia, unspecified; N40.0 Benign prostatic hyperplasia without lower urinary tract symptoms; N18.3 Chronic kidney disease, stage 3 (moderate); K21.9 Gastro-esophageal reflux disease without esophagitis; G47.33 Obstructive sleep apnea (adult) (pediatric)
CPT/HCPCS: 76942; 85014; 85018; 86850; 86900; 86901; J2405; J3370; J7030; J7042